=== PATIENT | male | born 1940 | race Caucasian/White ===

== ENCOUNTER 2016-08-20 17:43 | Inpatient (IN) | payer MEDICARE, BC ==
[~2016-08-20] VITALS: Ht 172.7 cm; Wt 84.5 kg
--- NOTE | ~2016-08-20 | CATH ---
Cardiac Diagnostic + PCI Report Demographics Patient Name SEAN Fall Gender Male Date of 1940 Age 76 year(s) Patient Number [id number] Date of Study 08/20/2016 Visit Number [id number] Room Number 404 Corporate ID Ht 172.72 cm Wt 83.91 kg Accession Number [id number] BSA 1.98 m kg/m Referring Zahra Villa MD Primary Physician Physician Kalani Ruiz MD Secondary Physician Physician Julio Diagnostic Joseph DELEON Assisting Physician Physician Julio Interventional Joseph DELEON Physician Rn Imcu Physician Julio Findings and Conclusions Diagnostic Findings and Conclusion Severe single vessel coronary disease with a culprit 95% RCA lesion Moderately obstructive left disease Diagnostic Recommendations Immediate PCI of RCA Will consider stress test to evaluate left disease Interventional Findings and Conclusion Successful PCI of RCA Interventional Recommendations shelter dual antiplatelet thearpy Risk factor modification Procedure Description The patient was brought to the diagnostic cardiac catheterization-EP laboratory in the fasting, non-sedated state. Informed consent was obtained in the written and verbal form after the risks and benefits were explained. The patient had no further questions and agreed to proceed. The planned puncture-incision site(s) were shaved and prepped with ChloraPrep and draped in the usual sterile manner. Conscious sedation, supplemental oxygen, and pain control medications were delivered by a registered nurse under physician guidance. Surface ECG rhythm, blood pressure measurement, and pulse oximetry were monitored throughout the procedure. Arterial access. The access site was infiltrated with lidocaine. The vessel was entered with the Seldinger technique. A 6F radial sheath was advanced into the vessel and used for catheter placement. Selective left coronary angiography. A TIG catheter was advanced into the left coronary vessel ostium under Fluoroscopic guidance. Contrast was injected by hand. Images were obtained in multiple projections. Selective right coronary angiography. A TIG catheter was advanced into the right coronary vessel ostium under fluoroscopic guidance. Contrast was injected by hand. Images were obtained in multiple projections. Left heart catheterization. A catheter was advanced across the aortic valve to the left ventricle under fluoroscopic guidance. Resting hemodynamics were obtained. Arterial artery hemostasis was achieved. PCI of RCA using FR4 guide BMW wire and a 4.0x24 Synergy drug eluting stent The patient was transferred to a regular nursing floor via cart accompanied by a nurse. The patient left the laboratory in stable condition. Diagnostic Cath Status: Urgent Interventional Cath Status: Urgent Procedure Procedure Type Diagnostic procedure:Angiography:, [facility], Diagnostic Heart Cath SF PCI procedure:Drug Eluting Coronary Stent:, RCA Indications: Chest pain with positive enzymes. The procedure was explained in detail to the patient. Risks, complications and alternative treatments were reviewed. Written consent was obtained. Medications Reviewed with Patient prior to Procedure. Complications: No Complication. Angiographic Findings Dominance: Right Cardiac Arteries and Lesion Findings LMCA: Abnormal. Lesion on LMCA: Distal subsection.20% stenosis . Pre procedure RHODA III flow was noted. LAD: Abnormal. Lesion on Mid LAD: Mid subsection.60% stenosis . Pre procedure RHODA III flow was noted. LCx: Abnormal. Lesion on 1st Ob Sherri: Proximal subsection.30% stenosis . RCA: Abnormal. Lesion on Mid RCA: Mid subsection.75% stenosis reduced to 0%. Pre procedure RHODA III flow was noted. The lesion was diagnosed as a moderate risk lesion.Culprit lesion. Comments:Thrombtic Devices used - BMW GUIDEWIRE 180CM. Number of passes: 1. - CATH BAL RX EMERGE 3.0X15. 1 inflation(s) to a max pressure of: 8 juan. - CATH STENT SYNERGY 4.0 X 24. 1 inflation(s) to a max pressure of: 14 juan. - CATH BAL RX NC EMERGE 4.5X12. 2 inflation(s) to a max pressure of: 16 juan. Coronary Tree Procedure Data Procedure Date Date: 08/20/2016Start: 09:17 PMEnd: 10:05 PM Entry Locations - Retrograde Percutaneous access was performed through the Right Radial artery. A 6 Fr sheath was inserted. Procedure Medications Order and Administration + + +---------+-------+ !Time !Medication !Dosage !Route ! + + +---------+-------+ !08/20/2016 !Versed !2 mg !I.V. ! !09:22 PM ! ! ! ! + + +---------+-------08/20/2016 !Fentanyl !25 mcg !I.V. ! !09:23 PM ! ! ! ! + + +---------+-------08/20/2016 !SF Radial Cocktail: 200mcg Nitro, 2.5 mg! !I.A. ! !09:23 PM !Verapamil, 5000u Heparin ! ! ! + + +---------+-------08/20/2016 !Brilinta (Ticagrelor) (ACC_20) !180 mg !P.O. ! !09:35 PM ! ! ! ! + + +---------+-------08/20/2016 !Heparin (ACC_3) !3000 !I.V. ! !09:43 PM ! !units ! ! + + +---------+-------+ !08/20/2016 !Fentanyl !25 mcg !I.V. ! !09:43 PM ! ! ! ! + + +---------+-------+ !08/20/2016 !Nitroglycerin !200 !I.C. ! !09:44 PM ! ! ! ! + + +---------+-------+ !08/20/2016 !GI Cocktail !30 ml !P.O. ! !09:57 PM ! ! ! ! + + +---------+-------+ Devices Used - F TIG CATHETERwas used for:Coronary Angios. - ACATH 6FR PIG 145 110CM CATHETER. - AGUIDE CATHETER 6FR FR 4.0 100CM. Comments: used for PCI of RCA. Contrast Material - Isovue 87585 ml Fluoroscopy Dose: Diagnostic: 1012 mGy. Total: 1012 mGy. Estimated Blood Loss: 10 ml. Medical History Risk Factors The patient risk factors include:treated and uncontrolled hypertension, last creatinine: 1.2 mg/dl and creatinine clearance: 64.1 ml/min. Admission Data Admission Date: 08/20/2016 Admission Time: 07:15 PM Arrival Date: 08/20/2016 Arrival Time: 09:10 AM Admit Source: Other Insurance Payors: Medicare. Clinical Evaluation Leading to Procedure - The patient's CAD presentation was assessed as: Non-STEMI.The symptom onset was first noted on 08/20/2016 04:30 PM - The patient's anginal syndrome during the past two weeks was assessed as: Class IV according to the [place] Cardiovascular Society Classification System (CCS). Anti-anginal medications were prescribed during the past two weeks. The medications are: Beta Blockers and Long Acting Nitrates. Hemodynamics Condition: Rest O2 Consumption: Estimated: 239.10Heart Rate: 85 bpm Pressures (mmHg) +-----+ + !Site !Pressure ! +-----+ + !LV !87/1 ,3 ! +-----+ + !AO !95/58 (74) ! +-----+ + !LV !92/1 ,3 ! +-----+ + Valve Gradients and Areas + +---------+---------+---------+ +---------+ + !Valve !Peak !Mean !Area !Index !Flow !Source ! + +---------+---------+---------+ +---------+ + !Aortic !0 !0 ! ! ! ! ! + +---------+---------+---------+ +---------+ + !Aortic !0 !0 ! ! ! ! ! + +---------+---------+---------+ +---------+ + Shunts Oxygen Values O2 Capacity 174.08 O2 Consumption 239.1 Discharge Data Discharge Date: 08/22/2016 Hospital Status: Inpatient Signatures
--- NOTE | ~2016-08-20 | ECH ---
Transthoracic Echocardiography Report (TTE) Demographics Patient Name DAT ESTRADA Date of Study 08/22/2016 Patient Number [id number] Visit Number [id number] Date of 1940 Room Number 404 Accession Number [id number] Gender Male Age 76 year(s) Referring Joseph DELEON Box Storage Worker Chhaya Croft Physician Julio Villa MD Physician Interpreting Nii Tan MD Paraplanner Physician Supervising Ordering Physician Joseph DELEON MD/JUAN Kim Nurse Stress Security Assessor Conclusions Summary Technically good exam. The estimated left ventricular ejection fraction is 60%. Mild concentric left ventricular hypertrophy. No significant valvular abnormalities. Procedure Type of Study TTE procedure:Echo Complete SF. Procedure Date Date: 08/22/2016 Start: 07:33 AM Technical Quality: Good visualization Indications:Chest pain, Coronary artery disease, Hypertension and RBBB. Additional Indications:s/p stent Appropriate Use Criteria: 9 Height: 68 inches Weight: 185 pounds BSA: 1.98 m Rhythm: Sinus with bundle branch block HR: 80 bpm BP: 129/76 mmHg M-Mode/2D Measurements LV Diastolic Dimension: 5.07 cm LV Systolic Dimension: 3.34 cm LV Septum Diastolic: 0.84 cm LV PW Diastolic: 0.81 cm AO Root Dimension: 3.13 cm Cardiac Output: 4.51 l/min LA Dimension: 3.85 cm Cardiac Index: 2.28 l/min*m RV Diastolic Dimension: 3.28 cm LA volume index: 28 ml/m LVOT: 1.94 cm LVOT VTI: 19.08 cm RV Base: 3.2 cm LV Stroke volume: 56.37 ml RV Mid: 2.6 cm LV Stroke volume index: 28.47 ml/m TAPSE: 1.8 cm TDI-S': 13 cm/s Doppler Measurements AV Peak Velocity: 1.3 m/s MV Peak E-Wave: 0.86 m/s AV Peak Gradient: 6.76 mmHg MV Peak A-Wave: 0.87 m/s AV Mean Gradient: 3.36 mmHg MV E/A Ratio: 0.99 LVOT Peak Velocity: 0.89 m/s MV P1/2t: 56.9 msec AV Area (Continuity):2.23 cm MV Deceleration Time: 178.2 msec TR Velocity:2.21 m/s MV Area (PHT): 3.87 cm TR Gradient:19.58 mmHg PV Peak Velocity: 1.03 m/s Estimated RAP:3 mmHg PV Peak Gradient: 4.27 mmHg Estimated RVSP: 23 mmHg Estimated PASP: 22.58 mmHg E' Septal Velocity: 0.08 m/s A' Septal Velocity: 0.11 m/s E' Lateral Velocity: 0.09 m/s A' Lateral Velocity: 0.12 m/s RA Area: 12.85 cm Findings Left Ventricle Normal left ventricle size and function. Mild concentric left ventricular hypertrophy. Right Ventricle Normal right ventricle structure and function. Left Atrium Normal left atrial size. Right Atrium Normal right atrial size. Mitral Valve Normal mitral valve structure and function. Trivial mitral regurgitation by color Doppler. Aortic Valve Normal aortic valve structure and function. Tricuspid Valve Normal tricuspid valve structure and function. Trivial tricuspid regurgitation by color Doppler. Normal pulmonary pressures. Pulmonic Valve Normal pulmonic valve structure and function. Mild pulmonic valve regurgitation by color Doppler. Pericardial Effusion No evidence of pericardial effusion. Miscellaneous Visualized portions of the aortic root and ascending aorta appear normal in size. Pleural Effusion No evidence of pleural effusion. Signature
[2016-08-23] MEDS ORDERED: [UNRECOGNIZED DRUG - OTHER] PO (17:20)
[2016-08-23] MEDS ORDERED: LEVOXYL150 MCG PO (17:20)
[2016-08-23] MEDS ORDERED: TRIAMCINOLONE TP (17:21)
[2016-08-23] MEDS ORDERED: TYLENOL EXTRA500 M1 PO (17:21)
[2016-08-23] MEDS ORDERED: OMEGA-3 DPS1000 MG PO (17:22)
[2016-08-23] MEDS ORDERED: FLAX SEED OIL1000 MG PO (17:22)
[2016-08-23] MEDS ORDERED: VITAMIN D31000 UNIT PO (17:23)
[2016-08-23] MEDS ORDERED: COQ-10100 MG PO (17:23)
[2016-08-23] MEDS ORDERED: [UNRECOGNIZED DRUG - OTHER] PO (17:24)
[2016-08-23] MEDS ORDERED: NIACIN100 MG PO (17:24)
[2016-08-23] MEDS ORDERED: ASA CHILDREN'S81 MG PO (17:24)
[2016-08-23] MEDS ORDERED: THERA1 EACH PO (17:24)
[2016-08-23] MEDS ORDERED: SAW PALMETTO450 MG PO (17:25)
[2016-08-23] MEDS ORDERED: LIPITOR40 MG PO (17:26)
[2016-08-23] MEDS ORDERED: VITAMIN E400 UNIT PO (17:26)
[2016-08-23] MEDS ORDERED: CARVEDILOL3.125 MG PO (17:26)
[2016-08-23] MEDS ORDERED: BRILINTA90 MG PO (17:26)
[2016-08-23] MEDS ORDERED: NITROSTAT0.4 MG SL (17:27)
--- NOTE | 2016-08-24 15:07 | HP ---
ADMIT: 08/20/2016 RM/LOC: 404 [facility] MR#: [id number] [address] [address] DAT ESTRADA [address] [place] [address] History and Physical SEX: M AGE: 76 : 1940 DATE OF SERVICE: REASON FOR ADMISSION: Chest pain and elevated troponin. HISTORY OF PRESENT ILLNESS: Dat is a pleasant 76-year-old male with no prior cardiac history, but does have history of hypertension and states that this afternoon he started developing indigestion symptoms. He said he had a burning in his chest along with some shortness of breath. 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 He said it did not radiate anywhere. He was short of breath, but was not diaphoretic. He said he tried to rest for a while and then he laid down on the floor for about 20 minutes. He took some Rolaids and Pepto-Bismol with no improvement in his symptoms. He eventually came to the emergency room. His EKG showed a sinus rhythm with a right bundle- branch block with some nonspecific ST changes. He was given some nitroglycerin with some improvement of his discomfort, so I was asked to see him in consultation. His initial troponin level 0.44, and he is still having chest discomfort despite being on a heparin drip and nitroglycerin drip. PAST MEDICAL HISTORY: 1. History of hypertension. 2. History of appendectomy. 3. History of pericarditis about 30 years ago. 4. Tinnitus. MEDICATIONS: He states he is on: 1. Dyazide. 2. Takes levothyroxine. 3. He takes a sleeping pill. ALLERGIES: NO KNOWN DRUG ALLERGIES. SOCIAL HISTORY: He occasionally drinks alcohol. He quit smoking 35 years ago. Denies any illicit drug use. 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 FAMILY HISTORY: He denies any family history of early coronary disease. He does have older brother, who had a pacemaker. REVIEW OF SYSTEMS: GENERAL: Denies any fever, chills, or sweats up until this afternoon. A few hours ago, he was feeling normal. HEENT: Denies any visual changes. He does have tinnitus. Denies any difficulty swallowing. GASTROINTESTINAL: Does have history of heartburn. Denies any nausea, vomiting, or diarrhea. GENITOURINARY: Denies any dysuria or hematuria. CARDIAC: As per HPI. PULMONARY: Denies any shortness of breath or hemoptysis. SKIN: Denies any rashes. NEUROLOGIC: Denies any history of TIA or strokes. ADMIT: 08/20/2016 RM/LOC: 404 [facility] MR#: [id number] [address] [place] [id number] DAT ESTRADA [facility] [address] [place] [address] History and Physical SEX: M AGE: 76 : 1940 PSYCHIATRIC: Denies any anxiety or depression. HEMATOLOGIC/ONCOLOGIC: Denies any history of cancer or easy bruising or bleeding. All other systems reviewed and negative. PHYSICAL EXAMINATION: VITAL SIGNS: Initially was hypertensive at 173/110, pulse was 85, respirations 15, and he was 98% on room air. GENERAL: He is mildly uncomfortable, but does not appear acutely ill. SKIN: [place], warm and dry. EYES: Sclerae clear. No xanthelasmas. ENT: Oral mucosa is pink and moist. No jugular venous distention or carotid bruits. CHEST: Respirations are even and unlabored. Lungs are clear to auscultation. HEART: Regular rate and rhythm. Normal S1, S2. No murmurs, rubs or gallops. ABDOMEN: Soft and nontender. MUSCULOSKELETAL: Gait is normal. EXTREMITIES: Peripheral pulses palpable. No clubbing, cyanosis or edema. PSYCHIATRIC: Alert and oriented. Mood and affect are appropriate. DIAGNOSTIC DATA: EKG shows sinus rhythm. He has a right bundle-branch block. He has some nonspecific ST changes in the inferolateral leads. Potassium was 3.4, glucose 102, creatinine 1.2, magnesium 2.1, CK was 135, MB 7.5, and troponin was 0.441. Coags were normal. CBC; white count 10.5, hemoglobin 12.8, hematocrit 38, and platelets 269. IMPRESSION AND PLAN: 1. Non ST-elevation myocardial infarction. 2. Hypertension. 3. History of pericarditis 30 years ago. RECOMMENDATIONS: His EKG shows some nonspecific changes, but he is continuing to have discomfort in his chest despite heparin and nitro drip. He is still having chest discomfort despite medical therapy, so I would recommend we proceed with cardiac catheterization. I discussed the risks and benefits, including but not limited to, stroke, heart attack, , bleeding, infection, renal failure. The patient understands these risks and agrees to proceed. We will have further recommendations as his care progresses. Julio Ruiz MD/ lorena JOB #: [id number] CC: Julio Ruiz, Attending Physician Gabo Sweeney, Family Physician
--- NOTE | 2016-09-10 21:26 | ER ---
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 He said he frequently has problems with heartburn. He took his Pepto-Bismol and some Tums, did not relieve his heartburn, so he decided to come to the Emergency Department. He has had some belching associated with it, but no relief of the discomfort. At its maximum, he said it is probably a 5 or 6/10 and it is currently 5 or 6/10. He describes it as a pressure indigestion in his epigastrium with no radiation, has no shortness of breath. No diaphoresis. No lightheadedness or dizziness. Merely complains of the heartburn. PAST MEDICAL HISTORY: Significant for pericarditis. He has had an appendectomy and a history of hypertension. Occasional alcohol. No cigarette use. PHYSICAL EXAMINATION: GENERAL: A 76-year-old gentleman, in no acute distress. LUNGS: Clear to auscultation. CARDIOVASCULAR: Regular rate and rhythm with no murmurs, rubs, or gallops. ABDOMEN: Soft, tenderness in the epigastrium. EXTREMITIES: Unremarkable. EMERGENCY ROOM COURSE: Cardiac workup was initiated. EKG showed right bundle- branch block. His troponin, however, was 0.441, MB was 5.7. Chest x-ray was unremarkable. Chemistries were also unremarkable. The patient was being admitted for non-STEMI. Heparin drip and nitroglycerin drip were started in the Emergency Department. Corey Carr MD/ lorena JOB #: [id number] CC: Gary Garcia MD, Attending Physician Gabo Sweeney MD, Family Physician
--- NOTE | 2016-09-13 09:52 | DS ---
ADMIT: 08/20/2016 RM/LOC: 404 [facility] MR#: [id number] [address] [address] DAT ESTRADA [address] [facility] [address] General Discharge Summary SEX: M AGE: 76 : 1940 ADMISSION DATE: 08/20/2016 DISCHARGE DATE: 08/22/2016 REASON FOR ADMISSION: Chest pain and elevated troponin. PROCEDURES PERFORMED: On 08/20/[address] Julio Ruiz, selective coronary angiography with left heart catheterization with successful PCI of right coronary artery lesion with drug-eluting stent. FINAL DIAGNOSES: 1. Non-ST elevated myocardial infarction, status post PCI to mid RCA 95% lesion. 2. Coronary artery disease. 3. Hyperlipidemia. 4. Elevated hemoglobin A1c. Veronica Hickey RN / Julio Ruiz MD / lorena JOB #: [id number] CC: Julio Ruiz MD, Attending Physician Gabo Sweeney MD, Family Physician Gabo Sweeney MD
== END 2016-08-22 12:14 | disposition home or self-care (01) | DRG 247 ==
LOC: ER 17:43 → 4PCU 19:15
PROVIDERS: ADMIT Internal Medicine Cardiovascular Disease
DX: I21.4 Non-ST elevation (NSTEMI) myocardial infarction (principal); I10 Essential (primary) hypertension; E78.5 Hyperlipidemia, unspecified; R79.89 Other specified abnormal findings of blood chemistry; I25.10 Atherosclerotic heart disease of native coronary artery without angina pectoris; E87.6 Hypokalemia; Z87.891 Personal history of nicotine dependence